=== PATIENT | female | born 1955 | race Two or more races ===

== ENCOUNTER 2021-06-04 19:24 | Emergency (ER) | payer OTHER ==
[~2021-06-04] VITALS: Ht 167.6 cm; Wt 72.6 kg
[2021-06-04] MEDS ORDERED: MOTION SICKNESS25 M1 PO (23:53)
== END 2021-06-05 00:24 | disposition home or self-care (01) ==
LOC: ER 19:24
DX: H61.21 Impacted cerumen, right ear (principal)